=== PATIENT | male | born 1945 | race Caucasian/White ===

== ENCOUNTER 2018-02-03 09:46 | Outpatient (CLI) | payer OTHER | END 2018-02-03 09:47 | disposition home or self-care (01) | LOC: MADLAB 09:46 | PROVIDERS: ATTEND Orthopaedic Surgery | DX: E11.9 Type 2 diabetes mellitus without complications (principal) | CPT/HCPCS: 36415; 82951 ==

== ENCOUNTER 2018-02-06 09:51 | Outpatient (CLI) | payer OTHER | END 2018-02-06 09:52 | disposition home or self-care (01) | LOC: MADLAB 09:51 | PROVIDERS: ATTEND Orthopaedic Surgery | DX: E11.9 Type 2 diabetes mellitus without complications (principal) | CPT/HCPCS: 36415; 82951 ==